=== PATIENT | female | born 1985 | race Two or more races ===

== ENCOUNTER → 2019-11-27 | Outpatient (CLI) | payer OTHER | END | disposition home or self-care (01) | LOC: PRENATAL 14:16 | PROVIDERS: ATTEND Obstetrics & Gynecology | DX: O36.80X1 Pregnancy with inconclusive fetal viability, fetus 1 (principal); O99.512 Diseases of the respiratory system complicating pregnancy, second trimester; O26.842 Uterine size-date discrepancy, second trimester ==

== ENCOUNTER → 2020-01-01 | Outpatient (CLI) | payer OTHER | END | disposition home or self-care (01) | LOC: PRENATAL 13:58 | PROVIDERS: ATTEND Obstetrics & Gynecology | DX: O34.42 Maternal care for other abnormalities of cervix, second trimester (principal); O09.512 Supervision of elderly primigravida, second trimester; O99.89 Other specified diseases and conditions complicating pregnancy, childbirth and the puerperium ==